=== PATIENT | female | born 1960 | race African-American/Black ===

== ENCOUNTER 2022-12-04 17:08 | Emergency (ER) | payer MEDICAID ==
[~2022-12-04] VITALS: Ht 160 cm; Wt 90.7 kg
[2022-12-04 17:29] VITALS: BP 186/106; PULSE 79; RESP 16; TEMP 98.2; O2SAT 97
[2022-12-04] MEDS ORDERED: AMLO5TAB4 MT (17:32)
== END 2022-12-04 17:44 | disposition home or self-care (01) ==
LOC: ER 17:08
DX: I16.0 Hypertensive urgency (principal)
CPT/HCPCS: 99283